=== PATIENT | female | born 1945 | race Caucasian/White ===

== ENCOUNTER → 2016-11-25 10:23 | Outpatient (CLI) | payer MEDICARE ==
[2015-05-01 07:52] VITALS: BMI 41.6
[~2016-11-25 10:23] MED LIST: ADVAIR 250/501 DISK INH; COLACE100 MG PO; COZAAR50 MG PO; DOXYCYCLINE HY100 M2 PO; EFFEXOR XR150 MG PO; ENABLEX15 MG PO; FLUTICASONE PRO16 GM NASAL; KEPPRA250 MG PO; KEPPRA500 MG PO; MIRAPEX0.125 MG PO; PROBIOTIC1 EAC1 PO; SINGULAIR10 MG PO; STERAPRED DS 1210 MG PO; TAMOXIFEN CITRA20 MG PO; TIROSINT88 MCG PO; VENTOLIN HFA18 GM INH; VERELAN120 MG PO; VITAMIN D31000 UNIT PO
== END | disposition home or self-care (01) ==
LOC: D.CT 11-15 10:30
DX: R91.8 Other nonspecific abnormal finding of lung field (principal)

== ENCOUNTER → 2017-03-07 16:56 | Outpatient (CLI) | payer MEDICARE ==
[2015-05-01 07:52] VITALS: BMI 41.6
== END | disposition home or self-care (01) ==
LOC: D.MAMMO 02-09 15:00
DX: C50.911 Malignant neoplasm of unspecified site of right female breast (principal)